=== PATIENT | male | born 1980 | race Caucasian/White ===

== ENCOUNTER 2018-02-04 14:51 | Emergency (ER) | payer OTHER ==
[2018-02-04 15:38] VITALS: BP 109/80
--- NOTE | 2018-02-04 15:43 | UC ---
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 His really wanted him to come in for tetanus shot. states the wound is small and he is not worried about it. no bleeding. no fevers , discharge, redness - History of Current Complaint Chief Complaint: UCWounds Time Seen by Provider: 02/04/18 15:37 Stated Complaint: PUNCTURE WOUND - RIGHT FOOT Pain Intensity: 1 - Allergy/Home Medications Allergies/Adverse Reactions: Allergies Allergy/AdvReac Type Severity Reaction Status Date / Time No Known Allergies Allergy Verified 02/04/18 15:35 Home Medications: Home Medications NK [No Home Medications Reported] 02/04/18 [History Confirmed 02/04/18] Review of Systems Constitutional: Negative Skin: Negative ENT: Negative Respiratory: Negative Cardiovascular: Negative Gastrointestinal: Negative Motor: Negative Neurovascular: Negative Musculoskeletal: Negative Neurological: Negative Psychological: Negative Is Patient Immunocompromised?: No All Other Systems Reviewed And Are Negative: Yes PMH/Surg Hx/FS Hx/Imm Hx Previously Healthy: Yes - Surgical History Surgical History: Yes Surgery Procedure, Year, and Place: HERNIA AN INFANT - Family History Known Family History: Positive: Hypertension - Social History Alcohol Use: Daily Alcohol Amount: 2-3 NIGHTLY Substance Use Type: None Smoking Status (MU): Heavy Every Day Tobacco Smoker Physical Exam Triage Information Reviewed: Yes Appearance: Well-Appearing, No Pain Distress, Well-Nourished Vital Signs: Initial Vital Signs Temp 98.3 F 02/04/18 15:30 Pulse 85 02/04/18 15:30 Resp 16 02/04/18 15:30 BP 109/80 02/04/18 15:30 Pulse Ox 99 02/04/18 15:30 Vital Signs Reviewed: Yes Eye Exam: Normal Respiratory Exam: Normal Respiratory: Positive: Lungs clear, Normal breath sounds, No respiratory distress Cardiovascular: Positive: RRR, No Murmur, Pulses Normal Musculoskeletal Exam: Normal Musculoskeletal: Positive: Strength Intact, ROM Intact Neurological Exam: Normal Neurological: Positive: Alert, Muscle Tone Normal Psychological Exam: Normal Skin: Positive: Other - left plantar foot with small puncture wound. no dc or bleeding. no surrounding erythema. able to move toes and foot. CR brisk. sensation intact Course/Dx - Course Course Of Treatment: foot soaked. Tdap updated. no concern for infection at this time. - Differential Diagnoses - Skin Complaint Differential Diagnoses: Other - puncture wound - Diagnoses Provider Diagnoses: left foot puncture wound, immunization update Discharge - Sign-Out/Discharge Documenting (check all that apply): Patient Departure All imaging exams completed and their final reports reviewed: No Studies - Discharge Plan Condition: Stable Disposition: HOME Patient Education Materials: Diphtheria/Pertussis/Tetanus Vaccine (By injection ), Puncture Wound (DC) Referrals: No Primary Care Phys,NOPCP [Primary Care Provider] - Additional Instructions: Watch for any signs of infection, puss, drainage or redness at the site of the wound. Please follow up if you do develop any of these for antibiotics. - Billing Disposition and Condition Condition: STABLE Disposition: Home
[2018-02-04] MEDS ORDERED: Tetan/Diph/Pertus SYR(Tdap)* 0.5 ML SYR(BOOSTRIX) use SYR IM ONE (15:47)
== END 2018-02-04 16:00 | disposition home or self-care (01) ==
LOC: UCCORT 14:51
DX: S91.331A Puncture wound without foreign body, right foot, initial encounter (principal); W22.8XXA Striking against or struck by other objects, initial encounter; Y93.9 Activity, unspecified; Y92.009 Unspecified place in unspecified non-institutional (private) residence as the place of occurrence of the external cause; F17.210 Nicotine dependence, cigarettes, uncomplicated; Z23 Encounter for immunization
CPT/HCPCS: 90471; 90715; 99201; G0463